=== PATIENT | male | born 1995 | race Caucasian/White ===

== ENCOUNTER 2020-04-10 10:47 | Emergency (ER) | payer OTHER ==
--- OUTSIDE RECORDS SUMMARY | 2020-04-10 10:50 | XMS ---
:1995 Author Organization [facility] Support Name Relationship Address Phone RAMAN Unavailable Unavailable Unavailable [employer]ILIP[employer] [address] [place] [address] Re-disclosure Warning The records that you are about to access may contain information from federally- assisted alcohol or drug abuse programs. If such information is present, then the following federally mandated warning applies: This information has been disclosed to you from records protected by federal confidentiality rules (42 CFR part 2). The federal rules prohibit you from making any further disclosure of this information unless further disclosure is expressly permitted by the written consent of the person to whom it pertains or as otherwise permitted by 42 CFR part 2. A general authorization for the release of medical or other information is NOT sufficient for this purpose. The Federal rules restrict any use of the information to criminally investigate or prosecute any alcohol or drug abuse patient.The records that you are about to access may contain highly sensitive health information, the redisclosure of which is protected by Article 27-F of the [facility] Public Health law. If you continue you may haveaccess to information: Regarding HIV / AIDS; Provided by facilities licensed or operated by the [facility] Office of Mental Health; or Provided by the [facility] Office for People With Developmental Disabilities. If such information is present, then the following [facility] mandated warning applies: This information has been disclosed to you from confidential records which are protected by state law. State law prohibits you from making any further disclosure of this information without the specific written consent of the person to whom it pertains, or as otherwise permitted by law. Any unauthorized further disclosure in violation of state law may result in a fine or [place] [facility] sentence or both. A general authorization for the release of medical or other information is NOT sufficient authorization for further disclosure. Insurance Providers Payer name Policy type Policy ID Covered Covered constitution party's Policy P arelis / Coverage constitution party ID relationship to Velazquez Inf ormation type velazquez MARIO [id number] NON CAP Results ID Date Data Source [id number] 03/16/2020 12:45:00 PM EDT [facility] Name Value Range Interpretation Description Data Sup porting Code Source(s) Document(s ) [address] [facility] Coronavirus RNA Interpretation Unspecified Specimen Qualitative ALONZO Probe Detection This lab was ordered by [facility] and reported by [facility]. Procedure
--- NOTE | 2020-04-10 10:51 | TELE ---
HPI Do you have fever,cough or shortness of breath?: No - General Reason For Visit: COVID TESTING History Source: Patient Past History - Medical History Allergies/Adverse Reactions: Allergies Allergy/AdvReac Type Severity Reaction Status Date / Time No Known Allergies Allergy Verified 02/01/16 10:15 Home Medications: Ambulatory Orders Erythromycin 0.5% Eye Ointment [Erythromycin 0.5% Eye Ointment -] 1 applic OS DAILY #1 tube 02/01/16 - Psycho-Social/Smoking History Smoking History: Never smoked Review of Systems - Review of Systems Constitutional: No: Fever Respiratory: No: Cough, Shortness of Breath Cardiac (ROS): No: Chest Pain *Physical Exam - Physical Exam HEENT: positive: Normal Voice - Medical Decision Making 04/10/20 10:51 Needs covid test for school Has no sxs To proceed to [facility] as discussed Discharge Diagnosis at time of Disposition: Encounter by telehealth for suspected COVID-19 - Referrals Follow-up Referral(s): Trenton Hernandez MD [Primary Care Provider] - - Patient Instructions - Discharge Disposition: HOME
== END 2020-04-10 12:16 | disposition home or self-care (01) ==
LOC: JVIRT 10:47
DX: Z11.59 Encounter for screening for other viral diseases (principal)
CPT/HCPCS: C9803; Q3014-GT; U0003

== ENCOUNTER 2022-06-19 17:23 | Emergency (ER) | payer OTHER ==
[2022-06-19 17:59] VITALS: BP 145/86; PULSE 81; RESP 18; TEMP 97.9; BMI 32.8
[2022-06-19] MEDS ORDERED: SODIUM CHLORIDE 1,000 ML IV STA (19:39)
[2022-06-19] MEDS ORDERED: FAMOTIDINE 20 MG/50 ML IVPB 20 MG/50 ML MG IVPB ONE ×2 (19:40→20:34)
[2022-06-19] MEDS ORDERED: MAG HYDROX/AL HYDROX/SIMETH -MYLANTA- ORAL SUSPENSION PO ONE (19:40)
[2022-06-19] MEDS ORDERED: MAG HYDROX/AL HYDROX/SIMETH 30 ML UNIT-DOSE CUP ONE (20:34)
[2022-06-19 21:04] LABS: BASO % 0.9 % (0-2.0); EOS % 2.2 % (0-4.5); HEMATOCRIT 47.9 % (35.4-49); HEMOGLOBIN 16.6 GM/dL (11.7-16.9); MCH 27.6 pg (25.7-33.7); MCHC 34.7 g/dl (32.0-35.9); MEAN CELL VOLUME 79.5 fl (80-96); MONO % 7.5 % (3.8-10.2); NEUT % 49.4 % (42.8-82.8); PLATELET COUNT 326 10^3/uL (134-434); RBC 6.03 M/mm3 (4.00-5.60); RDW 13.1 % (11.9-15.9)
[2022-06-19 22:21] LABS: PH,URINE 7.5 (5.0-8.0); URINE APPEARANCE CLEAR; URINE BILIRUBIN NEGATIVE (NEGATIVE); URINE COLOR YELLOW; URINE GLUCOSE (UA) NEGATIVE (NEGATIVE); URINE KETONE NEGATIVE (NEGATIVE); URINE LEUK ESTERASE NEGATIVE (NEGATIVE); URINE NITRITE NEGATIVE (NEGATIVE); URINE PROTEIN NEGATIVE (NEGATIVE)
[2022-06-19 22:34] LABS: CALCIUM 9.7 mg/dL (8.5-10.1)
[2022-06-19 22:35] LABS: ALBUMIN 4.4 g/dl (3.4-5.0); BLOOD UREA NITROGEN 11.3 mg/dL (7-18)
[2022-06-19 22:38] LABS: CREATININE 0.8 mg/dL (0.55-1.3)
[2022-06-19 22:39] LABS: BILIRUBIN,TOTAL 0.5 mg/dL (0.2-1); TOT PROT 7.9 g/dl (6.4-8.2)
== END 2022-06-19 23:38 | disposition home or self-care (01) ==
LOC: JER 17:23
PROC: 3E033GC Introduction of Other Therapeutic Substance into Peripheral Vein, Percutaneous Approach (ICD-10-PCS; principal; 2022-06-19)
PROC: 3E0337Z Introduction of Electrolytic and Water Balance Substance into Peripheral Vein, Percutaneous Approach (ICD-10-PCS; 2022-06-19)
DX: K21.9 Gastro-esophageal reflux disease without esophagitis (principal)
CPT/HCPCS: 36415; 76705-TC; 80053; 81003; 83690; 85025; 87086; 99284-25

== ENCOUNTER 2022-12-20 14:58 | Emergency (ER) | payer OTHER ==
[2022-12-20 15:16] VITALS: BP 130/84; PULSE 72; RESP 20; TEMP 98.3; BMI 35.9
[2022-12-20] MEDS ORDERED: SODIUM CHLORIDE 0.9% 500 ML INFUS.BAG IV ONE (15:49)
[2022-12-20] MEDS ORDERED: FAMOTIDINE 20 MG TABLET PO ONE (15:50)
[2022-12-20] MEDS ORDERED: MAG HYDROX/AL HYDROX/SIMETH 30 ML UNIT-DOSE CUP PO ONE (15:50)
[2022-12-20] MEDS ORDERED: FAMOTIDINE 20 MG TABLET ONE (15:56)
[2022-12-20] MEDS ORDERED: MAG HYDROX/AL HYDROX/SIMETH 30 ML UNIT-DOSE CUP ONE (15:56)
[2022-12-20 16:57] LABS: BASO % 0.8 % (0-2.0); EOS % 2.3 % (0-4.5); HEMOGLOBIN 15.9 GM/dL (11.7-16.9); LYMPH % 32.9 % (8-40); MCH 27.4 pg (25.7-33.7); MCHC 33.9 g/dl (32.0-35.9); MEAN PLT VOLUME 8.4 fl (7.5-11.1); MONO % 7.1 % (3.8-10.2); NEUT % 56.9 % (42.8-82.8); PLATELET COUNT 321 10^3/uL (134-434); RDW 12.8 % (11.9-15.9); WHITE BLOOD COUNT 5.6 K/mm3 (4.0-10.0)
[2022-12-20 17:15] LABS: POTASSIUM 3.9 mmol/L (3.5-5.1)
[2022-12-20 17:17] LABS: CALCIUM 10.3 mg/dL (8.5-10.1)
[2022-12-20 17:18] LABS: ALBUMIN 4.3 g/dl (3.4-5.0); BLOOD UREA NITROGEN 11.1 mg/dL (7-18)
[2022-12-20 17:21] LABS: CREATININE 0.8 mg/dL (0.55-1.3)
[2022-12-20 17:22] LABS: TOT PROT 7.9 g/dl (6.4-8.2)
== END 2022-12-20 18:05 | disposition home or self-care (01) ==
LOC: JER 14:58
DX: R10.12 Left upper quadrant pain (principal)
CPT/HCPCS: 36415; 80053; 83690; 85025; 99284-25

== ENCOUNTER 2023-05-23 20:52 | Emergency (ER) | payer OTHER ==
[2023-05-23 20:57] VITALS: BP 159/85; PULSE 94; RESP 18; TEMP 98.8; BMI 32.7
[2023-05-23] MEDS ORDERED: SODIUM CHLORIDE 0.9% 500 ML INFUS.BAG IV ONE (21:22)
[2023-05-23] MEDS ORDERED: ONDANSETRON 4 MG/2 ML VIAL IVPUSH ONE (21:22)
[2023-05-23] MEDS ORDERED: FAMOTIDINE 20 MG/50 ML IVPB 20 MG/50 ML MG IVPB ONE ×2 (21:22→21:41)
[2023-05-23] MEDS ORDERED: ACETAMINOPHEN 1000 MG/100 ML BAG IVPB ONE (21:22)
[2023-05-23] MEDS ORDERED: BISMUTH SUBSALICYLATE 262 MG/15 ML BTL PO ONE (21:23)
[2023-05-23] MEDS ORDERED: ONDANSETRON 4 MG/2 ML VIAL ONE (21:41)
[2023-05-23] MEDS ORDERED: ACETAMINOPHEN INJECTION 100 ML IVPB ONE (21:41)
[2023-05-23] MEDS ORDERED: MAG HYDROX/AL HYDROX/SIMETH 30 ML UNIT-DOSE CUP ONE (21:41)
[2023-05-23 22:50] LABS: BASO % 0.6 % (0-2.0); EOS % 2.4 % (0-4.5); HEMATOCRIT 46.5 % (35.4-49); HEMOGLOBIN 15.8 GM/dL (11.7-16.9); LYMPH % 21.9 % (8-40); MCH 27.3 pg (25.7-33.7); MEAN CELL VOLUME 80.3 fl (80-96); MEAN PLT VOLUME 8.4 fl (7.5-11.1); MONO % 8.2 % (3.8-10.2); NEUT % 66.9 % (42.8-82.8); PLATELET COUNT 293 10^3/uL (134-434); RBC 5.79 M/mm3 (4.00-5.60); RDW 13.4 % (11.9-15.9); WHITE BLOOD COUNT 7.2 K/mm3 (4.0-10.0)
[2023-05-23 23:04] LABS: CALCIUM 9.3 mg/dL (8.5-10.1)
[2023-05-23 23:05] LABS: ALBUMIN 4.2 g/dl (3.4-5.0); BLOOD UREA NITROGEN 12.1 mg/dL (7-18); MAGNESIUM 1.9 mg/dL (1.8-2.4)
[2023-05-23 23:08] LABS: CREATININE 0.8 mg/dL (0.55-1.3)
[2023-05-23 23:10] LABS: TOT PROT 7.7 g/dl (6.4-8.2)
== END 2023-05-23 23:31 | disposition home or self-care (01) ==
LOC: JER 20:52
PROC: 3E033GC Introduction of Other Therapeutic Substance into Peripheral Vein, Percutaneous Approach (ICD-10-PCS; principal; 2023-05-23)
PROC: 3E033NZ Introduction of Analgesics, Hypnotics, Sedatives into Peripheral Vein, Percutaneous Approach (ICD-10-PCS; 2023-05-23)
PROC: 3E033GC Introduction of Other Therapeutic Substance into Peripheral Vein, Percutaneous Approach (ICD-10-PCS; 2023-05-23)
DX: R10.13 Epigastric pain (principal); R19.7 Diarrhea, unspecified; A05.9 Bacterial foodborne intoxication, unspecified
CPT/HCPCS: 36415; 80053; 83690; 83735; 85025; 99284-25

== ENCOUNTER 2023-10-29 16:25 | Emergency (ER) | payer OTHER ==
[2023-10-29 16:31] VITALS: BP 142/81; PULSE 81; RESP 18; TEMP 98.7; BMI 32.8
[2023-10-29] MEDS ORDERED: LIDOCAINE VISCOUS 2% ORAL/TOP 15 ML UNIT-DOSE CUP ONE (17:54)
[2023-10-29] MEDS ORDERED: ONDANSETRON 4 MG/2 ML VIAL ONE (17:54)
[2023-10-29] MEDS ORDERED: MAG HYDROX/AL HYDROX/SIMETH 30 ML UNIT-DOSE CUP ONE (17:54)
[2023-10-29 18:00] LABS: BASO % 0.8 % (0-2.0); EOS % 2.5 % (0-4.5); HEMATOCRIT 46.3 % (35.4-49); HEMOGLOBIN 15.9 GM/dL (11.7-16.9); LYMPH % 30.8 % (8-40); MCH 27.5 pg (25.7-33.7); MCHC 34.4 g/dl (32.0-35.9); MONO % 7.7 % (3.8-10.2); NEUT % 58.2 % (42.8-82.8); PLATELET COUNT 319 10^3/uL (134-434); RBC 5.78 M/mm3 (4.00-5.60); RDW 12.9 % (11.9-15.9); WHITE BLOOD COUNT 6.1 K/mm3 (4.0-10.0)
[2023-10-29] MEDS ORDERED: FAMOTIDINE 20 MG/50 ML IVPB 20 MG/50 ML MG IVPB ONE (18:02)
[2023-10-29] MEDS: LIDOCAINE VISCOUS 2% ORAL/TOP 15 ML UNIT-DOSE CUP MM ONE (18:09)
[2023-10-29] MEDS: MAG HYDROX/AL HYDROX/SIMETH 30 ML UNIT-DOSE CUP PO ONE (18:09)
[2023-10-29] MEDS: FAMOTIDINE 20 MG/50 ML IVPB 20 MG/50 ML MG IVPB ONE (18:09)
[2023-10-29] MEDS: SODIUM CHLORIDE 0.9% 500 ML INFUS.BAG IV ONE (18:09)
[2023-10-29 18:23] LABS: POTASSIUM 4.2 mmol/L (3.5-5.1)
[2023-10-29 18:25] LABS: CALCIUM 10.1 mg/dL (8.5-10.1)
[2023-10-29 18:26] LABS: ALBUMIN 4.4 g/dl (3.4-5.0); BLOOD UREA NITROGEN 11.8 mg/dL (7-18)
[2023-10-29 18:29] LABS: CREATININE 0.9 mg/dL (0.55-1.3)
[2023-10-29 18:31] LABS: BILIRUBIN,TOTAL 0.9 mg/dL (0.2-1); TOT PROT 8.2 g/dl (6.4-8.2)
== END 2023-10-29 19:49 | disposition home or self-care (01) ==
LOC: JER 16:25
PROC: 3E033GC Introduction of Other Therapeutic Substance into Peripheral Vein, Percutaneous Approach (ICD-10-PCS; principal; 2023-10-29)
DX: K52.9 Noninfective gastroenteritis and colitis, unspecified (principal); R10.84 Generalized abdominal pain; R63.0 Anorexia
CPT/HCPCS: 36415; 80053; 83690; 85025; 96365; 99284-25

== ENCOUNTER 2023-12-14 11:07 | Emergency (ER) | payer OTHER ==
[2023-12-14] MEDS ORDERED: ONDANSETRON *ODT* 4 MG TABLET ONE (12:02)
[2023-12-14 12:03] VITALS: BP 122/76; PULSE 70; RESP 20; TEMP 97.8; BMI 32.7
[2023-12-14] MEDS: SODIUM CHLORIDE 1,000 ML IV STA (12:07)
[2023-12-14] MEDS: ONDANSETRON *ODT* 4 MG TABLET SL ONE (12:08)
[2023-12-14] MEDS ORDERED: MAG HYDROX/AL HYDROX/SIMETH 30 ML UNIT-DOSE CUP ONE (12:09)
[2023-12-14] MEDS: MAG HYDROX/AL HYDROX/SIMETH 30 ML UNIT-DOSE CUP PO ONE (12:11)
== END 2023-12-14 13:52 | disposition home or self-care (01) ==
LOC: JER 11:07
PROC: 3E0337Z Introduction of Electrolytic and Water Balance Substance into Peripheral Vein, Percutaneous Approach (ICD-10-PCS; principal; 2023-12-14)
DX: A08.4 Viral intestinal infection, unspecified (principal); R11.2 Nausea with vomiting, unspecified; R10.13 Epigastric pain
CPT/HCPCS: 99284-25

== ENCOUNTER 2024-06-21 17:41 | Emergency (ER) | payer OTHER ==
[2024-06-21 17:48] VITALS: BP 128/86; PULSE 82; RESP 18; TEMP 98.1; BMI 31.9
[2024-06-21] MEDS ORDERED: ACETAMINOPHEN INJECTION 100 ML ONE (19:40)
[2024-06-21] MEDS ORDERED: FAMOTIDINE 20 MG/50 ML IVPB 20 MG/50 ML MG IVPB ONE (19:40)
[2024-06-21] MEDS ORDERED: MAG HYDROX/AL HYDROX/SIMETH 30 ML UNIT-DOSE CUP ONE (19:40)
[2024-06-21] MEDS: MAG HYDROX/AL HYDROX/SIMETH 30 ML UNIT-DOSE CUP PO ONE (19:50)
[2024-06-21] MEDS: ACETAMINOPHEN 1000 MG/100 ML BAG IVPB ONE (19:50)
[2024-06-21] MEDS: FAMOTIDINE 20 MG/50 ML IVPB 20 MG/50 ML MG IVPB ONE (19:50)
[2024-06-21] MEDS: SODIUM CHLORIDE 0.9% 500 ML INFUS.BAG IV ONE (19:50)
[2024-06-21 20:03] LABS: HEMATOCRIT 47.6 % (35.4-49); HEMOGLOBIN 16.5 GM/dL (11.7-16.9); LYMPH % 37.6 % (8-40); MCH 27.9 pg (25.7-33.7); MCHC 34.8 g/dl (32.0-35.9); MEAN CELL VOLUME 80.3 fl (80-96); MONO % 6.7 % (3.8-10.2); NEUT % 51.7 % (42.8-82.8); PLATELET COUNT 345 10^3/uL (134-434); RBC 5.93 M/mm3 (4.00-5.60); RDW 13.3 % (11.9-15.9); WHITE BLOOD COUNT 6.2 K/mm3 (4.0-10.0)
[2024-06-21 20:11] LABS: INR 1.01 (0.83-1.09); PROTHROMBIN TIME (PATIENT) 11.6 SEC (9.7-13.0)
[2024-06-21 20:13] LABS: ACTIVATED PTT 31.9 SECONDS (25.2-36.5)
[2024-06-21 20:26] LABS: CALCIUM 9.9 mg/dL (8.5-10.1)
[2024-06-21 20:27] LABS: ALBUMIN 4.5 g/dl (3.4-5.0); BLOOD UREA NITROGEN 13.3 mg/dL (7-18)
[2024-06-21 20:30] LABS: CREATININE 0.9 mg/dL (0.55-1.3)
[2024-06-21 20:31] LABS: BILIRUBIN,TOTAL 0.7 mg/dL (0.2-1); TOT PROT 7.8 g/dl (6.4-8.2)
[2024-06-21 21:16] LABS: HIV INTERPRETATION NEGATIVE (NEGATIVE)
== END 2024-06-21 22:37 | disposition home or self-care (01) ==
LOC: JER 17:41
PROC: 3E033GC Introduction of Other Therapeutic Substance into Peripheral Vein, Percutaneous Approach (ICD-10-PCS; principal; 2024-06-21)
PROC: 3E033NZ Introduction of Analgesics, Hypnotics, Sedatives into Peripheral Vein, Percutaneous Approach (ICD-10-PCS; 2024-06-21)
DX: R10.13 Epigastric pain (principal)
CPT/HCPCS: 36415; 76705-TC; 80053; 83690; 83735; 85025; 85610; 85730; 86803; 87389; 99284-25; J0131